=== PATIENT | female | born 1975 | race American Indian/Alaskan Native ===

== ENCOUNTER 2017-05-17 10:44 | Outpatient (CLI) | payer OTHER ==
--- NOTE | 2017-05-17 13:28 | Ultrasound Report ---
BILATERAL DIGITAL DIAGNOSTIC MAMMOGRAM and LEFT BREAST ULTRASOUND: 05/17/17 10:44:00 CLINICAL: Recalled for bilateral asymmetries. COMPARISON: screening FINDINGS: Right ML and spot compression CC views are negative. However, a partially circumscribed asymmetry persists on left lateral medial and spot compression views. Ultrasound of the left breast demonstrated a benign cyst at 11 o'clock 8 cm from the nipple measuring 2.2 x 0.8 x 2.2 cm. It correlates with the mammographic asymmetry on the spot views. IMPRESSION: Benign left breast cyst. Negative right breast. BI-RADS CATEGORY: 2 - - Benign RECOMMENDATION: Routine mammographic screening in one year. ACR BI-RADS MAMMOGRAPHIC CODES: 0 = Needs additional imaging evaluation; 1 = Negative; 2 = Benign; 3 = Probably benign; 4 = Suspicious; 5 = Malignant; 6 = Known biopsy-proven malignancy COMMENT: 1. Dense breast tissue, i.e., adenosis, fibrocystic changes, etc., may obscure an underlying neoplasm. 2. Approximately 10% of cancers are not detected with mammography. 3. A negative mammography report should not delay biopsy if a clinically suspicious mass is present. COMMENT: Patient follow-up letters are generated via our [employer] application.
== END 2017-05-17 10:45 | disposition home or self-care (01) ==
LOC: SPVWC 10:44
PROVIDERS: ATTEND Family Medicine
DX: N60.02 Solitary cyst of left breast (principal)
CPT/HCPCS: 76642; G0204; 77066